=== PATIENT | male | born 1965 | race Caucasian/White ===

== ENCOUNTER 2022-06-27 13:57 | Emergency (ER) | payer MEDICAID ==
[2022-06-27] MEDS ORDERED: Sodium Chloride 0.9% 10 ML Syringe FLUSH PRN (14:17)
[2022-06-27] MEDS ORDERED: Sodium Chloride 0.9% 1,000 ML IV SCH (14:30)
[2022-06-27 15:13] VITALS: BP 141/81; PULSE 88
[2022-06-27] MEDS ORDERED: Propofol 200 MG/20 ML SDV ONE (15:48)
== END 2022-06-27 16:34 | disposition home or self-care (01) ==
LOC: JP.ED 13:57
DX: S52.532A Colles' fracture of left radius, initial encounter for closed fracture (principal); W00.9XXA Unspecified fall due to ice and snow, initial encounter
CPT/HCPCS: 25605; 25675; 29125; 73110; 76000; 99283; 99284; J2704; J7030

== ENCOUNTER 2022-07-06 07:26 | Day surgery (SDC) | payer MEDICAID ==
[2022-07-06] MEDS ORDERED: Bupivacaine 0.5% 50 ML MDV ONE (07:34)
[2022-07-06] MEDS ORDERED: Nozin Nasal Sanitizer NASBOTH ONE (08:00)
[2022-07-06] MEDS ORDERED: Lactated Ringers 1,000 ML IV SCH (08:00)
[2022-07-06 08:22] LABS: ESTIMATED GFR 88 mL/min (>60)
[2022-07-06] MEDS ORDERED: ceFAZolin 1 GM in Premix Bag 1 BAG IV ONE (08:30)
[2022-07-06] MEDS ORDERED: Dexamethasone 4 MG/ML SDV ONE (08:35)
[2022-07-06] MEDS ORDERED: Ondansetron 4 MG/2 ML SDV ONE (08:35)
[2022-07-06] MEDS ORDERED: fentaNYL 250 MCG/5 ML SDV ONE (08:35)
[2022-07-06] MEDS ORDERED: Succinylcholine 200 MG/10 ML MDV ONE (08:35)
[2022-07-06] MEDS ORDERED: Propofol 200 MG/20 ML SDV ONE (08:35)
[2022-07-06] MEDS ORDERED: Rocuronium 50 MG/5 ML Vial ONE (08:35)
[2022-07-06] MEDS ORDERED: fentaNYL 100 MCG/2 ML SDV ONE ×2 (08:39→10:44)
[2022-07-06] MEDS ORDERED: Acetaminophen/HYDROcodone 325-5 MG Tab PO ONE (11:48)
[2022-07-06 12:52] VITALS: BP 118/60; PULSE 80
== END 2022-07-06 13:30 | disposition home or self-care (01) ==
LOC: JP.SDS 07:26
PROVIDERS: ATTEND Specialist
DX: S52.502A Unspecified fracture of the lower end of left radius, initial encounter for closed fracture (principal); E78.5 Hyperlipidemia, unspecified; F41.9 Anxiety disorder, unspecified; F32.A Depression, unspecified; Z88.8 Allergy status to other drugs, medicaments and biological substances
CPT/HCPCS: 25608; 36415; 76000; 80053; 85027; A9270; C1713; J0330; J0690; J1100; J2405; J2704; J3010; J3490; J7120